=== PATIENT | female | born 1985 | race African-American/Black ===

== ENCOUNTER 2017-06-03 10:01 | Emergency (ER) | payer MEDICAID ==
[~2017-06-03] VITALS: Ht 165.1 cm; Wt 76.2 kg
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
--- OUTSIDE RECORDS SUMMARY | 2017-06-03 10:31 | External Medical Summary Rpt | CCD ---
Author Author , MARY HERNANDEZ Address Unknown Phone [email or web address] Purpose Continuity of Care Document - 04-22-2012 [...]
--- OUTSIDE RECORDS SUMMARY | 2017-06-03 10:32 | External Medical Summary Rpt ---
Author Author ROCHELLEJEFF Mckay, [employer] Address Unknown Phone Unavailable Results Glucose [Mass/volume] in Capillary blood by Glucometer Observa Value Referen Units Interpr Notes Date tion ce etation Range Glucose 70 - 110 mg/dl High No Jun 03 [Mass/vol informati 2016 ume] in on in 10:06 AM Capillary source blood by data Glucomete r Glucose [Mass/volume] in Capillary blood by Glucometer Observa Value Referen Units Interpr Notes Date tion ce etation Range Glucose 70 - 110 mg/dl High No Jun 03 [Mass/vol informati 2016 ume] in on in 10:06 AM Capillary source blood by data Glucomete r CHLAMYDIA AND GONORRHEA TESTING Observa Value Referen Units Interpr Notes Date tion ce etation Range COLLECT K1320 No No No No Apr 22 OR informa informa informa informa 2012 tion in tion in tion in tion in 4:10 PM source source source source data data data data ETHNICI BLACK, No No No No Apr 22 TY NON-HIS informa informa informa informa 2012 PANIC tion in tion in tion in tion in 4:10 PM source source source source data data data data KIT 2012-10 No No No No Apr 22 EXPIRAT -30 informa informa informa informa 2012 ION tion in tion in tion in tion in 4:10 PM DATE source source source source data data data data SYMPTOM YES No No No No Apr 22 S informa informa informa informa 2012 tion in tion in tion in tion in 4:10 PM source source source source data data data data REASON VOLUNTE No No No No Apr 22 FOR ER/MEDI informa informa informa informa 2012 REQUEST LEESA tion in tion in tion in tion in 4:10 PM PROBLEM source source source source data data data data SPECIME FEMALE No No No No Apr 22 N ENDOCER informa informa informa informa 2012 SOURCE VICAL tion in tion in tion in tion in 4:10 PM source source source source data data data data PREGNAN NO No No No No Apr 22 T informa informa informa informa 2012 tion in tion in tion in tion in 4:10 PM source source source source data data data data CHART NA No No No No Apr 22 NUMBER informa informa informa informa 2012 tion in tion in tion in tion in 4:10 PM source source source source data data data data [place] NEGATIV No No No NEGATIV Apr 22 ia E informa informa informa E 2012 trachom tion in tion in tion in RESULT= 4:10 PM atis source source source WITHIN rRNA data data data NORMAL [Presen ce] in LIMITSP Unspeci OSITIVE fied specime RESULT= n by Probe & ABNORMA target LEQUIVO LEESA amplifi RESULT= cation method INDETER MINATEU NSATISF ACTORY RESULT= INVALID Neisser NEGATIV No No No NEGATIV Apr 22 ia E informa informa informa E 2012 gonorrh tion in tion in tion in RESULT= 4:10 PM oeae source source source WITHIN rRNA data data data NORMAL [Presen ce] in LIMITSP Unspeci OSITIVE fied specime RESULT= n by Probe & ABNORMA target LEQUIVO LEESA amplifi RESULT= cation method INDETER MINATEU NSATISF ACTORY RESULT= INVALID THE APTIMA COMBO 2 ASSAY IS NOT INTENDE D FOR THE EVALUAT ION OF SUSPECT EDSEXUA L ABUSE OR FOR OTHER MEDICO- LEGAL INDICAT IONS. FOR THOSE PATIENT S FORWHOM A FALSE POSITIV E RESULT MAY HAVE ADVERSE PSYCHO- SOCIAL IMPACT, [facility] NG.\.br \This report contain s patient informa tion that must be protect ed in accorda nce with the Health Insuran ce Portabi lity and Account ability Act. CHLAMYDIA AND GONORRHEA TESTING Observa Value Referen Units Interpr Notes Date tion ce etation Range COLLECT K1320 No No No No Apr 22 OR informa informa informa informa 2012 tion in tion in tion in tion in 4:10 PM source source source source data data data data ETHNICI BLACK, No No No No Apr 22 TY NON-HIS informa informa informa informa 2012 PANIC tion in tion in tion in tion in 4:10 PM source source source source data data data data KIT 2012-10 No No No No Apr 22 EXPIRAT -30 informa informa informa informa 2012 ION tion in tion in tion in tion in 4:10 PM DATE source source source source data data data data SYMPTOM YES No No No No Apr 22 S informa informa informa informa 2012 tion in tion in tion in tion in 4:10 PM source source source source data data data data REASON VOLUNTE No No No No Apr 22 FOR ER/MEDI informa informa informa informa 2012 REQUEST LEESA tion in tion in tion in tion in 4:10 PM PROBLEM source source source source data data data data SPECIME FEMALE No No No No Apr 22 N ENDOCER informa informa informa informa 2012 SOURCE VICAL tion in tion in tion in tion in 4:10 PM source source source source data data data data PREGNAN NO No No No No Apr 22 T informa informa informa informa 2012 tion in tion in tion in tion in 4:10 PM source source source source data data data data CHART NA No No No No Apr 22 NUMBER informa informa informa informa 2012 tion in tion in tion in tion in 4:10 PM source source source source data data data data [place] Pending No No No No Apr 22 ia informa informa informa informa 2012 trachom tion in tion in tion in tion in 4:10 PM atis source source source source rRNA data data data data [Presen ce] in Unspeci fied specime n by Probe & target amplifi cation method Neisser Pending No No No \.br\Apr 22 ia informa informa informa is 2012 gonorrh tion in tion in tion in report 4:10 PM oeae source source source contain rRNA data data data s [Presen patient ce] in Unspeci informa fied tion specime that n by must be Probe & target protect ed in amplifi accorda cation nce method with the Health Insuran ce Portabi lity and Account ability Act.
--- OUTSIDE RECORDS SUMMARY | 2017-06-03 10:32 | External Medical Summary Rpt | CCD ---
Demographics Preferred Language Estonian Marital Status Unknown Baptist Affiliation Unknown Race Unknown Ethnic Group Unknown Author Author , MARY HERNANDEZ Address Unknown Phone Immunization No patient found.
--- OUTSIDE RECORDS SUMMARY | 2017-06-03 10:32 | External Medical Summary Rpt | CCD ---
Demographics Preferred Language Argentine Marital Status Unknown Protestant Affiliation Unknown Race Unknown Ethnic Group Unknown Author Author MARY Address Unknown Phone [email or web address] Purpose Continuity of Care Document - through 2016
--- OUTSIDE RECORDS SUMMARY | 2017-06-03 10:32 | External Medical Summary Rpt ---
[...] MAY HAVE ADVERSE PSYCHO- SOCIAL IMPACT, [facility] RETESTI NG.\.br \This report contain s [...]
--- OUTSIDE RECORDS SUMMARY | 2017-06-03 10:32 | External Medical Summary Rpt | CCD ---
Demographics Preferred Language Albanian Marital Status Unknown Episcopalian Affiliation Unknown Race Unknown Ethnic Group Unknown Author Author MARY Address Unknown Phone [email or web address] Purpose Continuity of Care Document - through 2016
--- OUTSIDE RECORDS SUMMARY | 2017-06-03 10:32 | External Medical Summary Rpt | CCD ---
Demographics Preferred Language Bengali Marital Status Unknown Lutheran Affiliation Unknown Race Unknown Ethnic Group Unknown Author Author , MARY HERNANDEZ Address Unknown Phone Immunization No patient found.
[2017-06-03 10:48] LABS: HEMOGLOBIN 13.2 g/dL (12.2-16.2); LYMPH # 1.8 K/mm3 (0.7-4.5); LYMPH % 29.8 % (10-50.0)
[2017-06-03 11:06] LABS: URINE BILIRUBIN - DIPSTICK NEGATIVE (NEG); URINE BLOOD NEGATIVE (NEG)
[2017-06-03 11:16] LABS: AMPHETAMINES/METAMPHETAMINES NEGATIVE ng/mL (<1000)
--- NOTE | 2017-06-03 11:40 | RADIOLOGY REPORT PS360 ---
CT HEAD-W/WO CONTRAST INDICATION: Headache, dizziness DIZZINESS ORDERING PHYSICIAN: Zakia Conteh MD PATIENT AGE: 31 years COMPARISON: None TECHNIQUE: Axial images are obtained without and with contrast. FINDINGS: No midline shift, mass effect, intracranial hemorrhage, enhancing lesion, or hydrocephalus is evident. Cerebellum has an unremarkable appearance. There are a few nonspecific falx calcifications. No mastoid effusion. There is a air-fluid level in both maxillary sinuses and moderate opacification of the ethmoid sinuses. IMPRESSION: 1. No acute intracranial findings. 2. Sinusitis
[2017-06-03] MEDS ORDERED: ZOFRAN4 MG PO (12:01)
[2017-06-03 12:31] VITALS: BP 95/59
== END 2017-06-03 12:32 | disposition home or self-care (01) ==
LOC: ER 10:01
PROVIDERS: General Practice
DX: E16.1 Other hypoglycemia (principal)
CPT/HCPCS: J2405; Q9967